=== PATIENT | female | born 1960 | race African-American/Black ===

== ENCOUNTER 2018-02-21 07:10 | Emergency (ER) | payer MEDICAID, OTHER ==
[~2018-02-21] VITALS: Ht 157.5 cm; Wt 63.6 kg
[~2018-02-21 07:10] MED LIST: AMLO-511 PO; ASPI-1182 PO; INSU100V12 SQ; PRAV20TA4 PO
[2018-02-21] MEDS ORDERED: CLON1PAT13 TD (07:38)
[2018-02-21] MEDS ORDERED: INSNOV SQ (07:38)
[2018-02-21] MEDS ORDERED: PROZ10 PO (07:38)
[2018-02-21] MEDS ORDERED: HYDR-2924 PO (07:38)
[2018-02-21] MEDS ORDERED: BUME1TAB17 PO (07:38)
[2018-02-21] MEDS ORDERED: PATI8.4P PO (07:38)
[2018-02-21] MEDS ORDERED: INSLAN SQ (07:38)
[2018-02-21] MEDS ORDERED: ISOS60TA4 PO (07:38)
[2018-02-21] MEDS ORDERED: SODI650T PO (07:38)
[2018-02-21] MEDS ORDERED: FERR-89 PO (07:38)
[2018-02-21 07:49] LABS: GLUCOSE,POINT OF CARE 50 MG/DL (70-110)
[2018-02-21 08:03] LABS: GLUCOSE,POINT OF CARE 42 MG/DL (70-110)
[2018-02-21] MEDS ORDERED: DEXTROSE 50%-WATER 25 GM/50 ML SYRINGE IVP ONE (08:15)
[2018-02-21 08:35] LABS: BASOPHILS % (AUTO) 1.2 % (0.0-2.0); EOSINOPHILS % (AUTO) 1.5 % (1.0-6.0); HEMATOCRIT 28.1 % (36-46); LYMPHOCYTES # (AUTO) 0.8 K/uL (1.0-4.8); LYMPHOCYTES % (AUTO) 12.7 % (22.0-44.0); MEAN CORPUSCULAR HEMOGLOBIN 26.2 pg (26.0-34.0); MEAN CORPUSCULAR HGB CONC 32.2 G/dL (31.0-37.0); MEAN CORPUSCULAR VOLUME 82 fL (80-100); MONOCYTES # (AUTO) 0.3 K/uL (0.1-1.0); NEUTROPHILS # (AUTO) 4.9 K/uL (1.8-7.7); NEUTROPHILS % (AUTO) 79.6 % (40.0-70.0); PLATELET COUNT (AUTO) 283 K/uL (150-450); RED BLOOD CELL COUNT(AUTO) 3.44 MIL/uL (4.00-5.20); RED CELL DISTRIBUTION WIDTH 14.2 % (11.5-14.5)
[2018-02-21 08:38] VITALS: BP 135/77
[2018-02-21 08:49] LABS: CALCIUM, TOTAL 8.7 mg/dL (8.8-10.5); CREATININE 2.72 mg/dL (0.60-1.30); POTASSIUM 4.5 mmol/L (3.5-5.1)
[2018-02-21 08:58] LABS: ALBUMIN 2.9 g/dL (3.4-5.0); BILIRUBIN,TOTAL 0.7 mg/dL (0.1-1.0); TOTAL PROTEIN, SERUM 8.6 g/dL (6.4-8.2)
[2018-02-21 09:08] LABS: GLUCOSE,POINT OF CARE 136 MG/DL (70-110)
[2018-02-21] MEDS ORDERED: SODIUM CHLORIDE 0.9% 1,000 ML IV ONE (10:00)
[2018-02-21 10:02] LABS: GLUCOSE,POINT OF CARE 139 MG/DL (70-110)
[2018-02-21 11:42] LABS: GLUCOSE,POINT OF CARE 139 MG/DL (70-110)
== END 2018-02-21 13:51 | disposition home or self-care (01) ==
LOC: EMS 07:12
DX: E11.649 Type 2 diabetes mellitus with hypoglycemia without coma (principal); E78.00 Pure hypercholesterolemia, unspecified; I10 Essential (primary) hypertension; F17.210 Nicotine dependence, cigarettes, uncomplicated; F14.90 Cocaine use, unspecified, uncomplicated; Z86.73 Personal history of transient ischemic attack (TIA), and cerebral infarction without residual deficits; Z79.4 Long term (current) use of insulin; Z79.82 Long term (current) use of aspirin; Z88.1 Allergy status to other antibiotic agents; Z88.8 Allergy status to other drugs, medicaments and biological substances; Z88.0 Allergy status to penicillin
CPT/HCPCS: 36415; 71045; 80053; 82962; 85025; 96361; 96374; 99285; 99406; J7030

== ENCOUNTER 2018-11-30 18:55 | Emergency (ER) | payer MEDICAID, OTHER ==
[~2018-11-30] VITALS: Ht 157.5 cm; Wt 55.0 kg
[~2018-11-30 18:55] MED LIST changes: +BUME1TAB17 PO; +CLON1PAT13 TD; +FERR-89 PO; +HYDR-2924 PO; +INSLAN SQ; +INSNOV SQ; +ISOS60TA4 PO; +PATI8.4P PO; +PROZ10 PO; +SODI650T PO
[2018-11-30] MEDS ORDERED: PARO20TA24 PO (19:22)
[2018-11-30] MEDS ORDERED: ISOS60TA4 PO (19:22)
[2018-11-30] MEDS ORDERED: CARV25 PO (19:22)
[2018-11-30 19:28] LABS: GLUCOSE,POINT OF CARE 219 MG/DL (70-110)
[2018-11-30 22:34] LABS: CALCIUM, TOTAL 8.9 mg/dL (8.8-10.5); CREATININE 3.72 mg/dL (0.60-1.30); POTASSIUM 4.5 mmol/L (3.5-5.1)
[2018-11-30 22:42] LABS: ALBUMIN 2.4 g/dL (3.4-5.0); BILIRUBIN,TOTAL 0.5 mg/dL (0.1-1.0); TOTAL PROTEIN, SERUM 7.6 g/dL (6.4-8.2)
[2018-12-01] MEDS ORDERED: CloNIDine HCL 0.2 MG TABLET PO ONE (00:15)
[2018-12-01 02:15] LABS: APPEARANCE,URINE CLOUDY (CLEAR); BILIRUBIN,URINE NEGATIVE (NEGATIVE); GLUCOSE, URINE (UA) 500 mg/dL (NEGATIVE); KETONES,URINE NEGATIVE (NEGATIVE); LEUKOCYTE ESTERASE ,URINE TRACE (NEGATIVE); NITRATE,URINE NEGATIVE (NEGATIVE); OCCULT BLOOD,URINE SMALL (NEGATIVE); PROTEIN,URINE SEE CONFIRM (NEGATIVE)
[2018-12-01 02:30] LABS: BACTERIA,URINE Many /HPF (None Seen)
[2018-12-01 02:31] LABS: SQUAMOUS EPITHELIAL CELL,UR Rare /LPF (None Seen); SULFOSALICYLIC ACID,URINE 1+ (Negative)
[2018-12-01 03:11] VITALS: BP 179/90
[2018-12-01] MEDS ORDERED: NITROFURANTOIN/NITROFURAN MAC 100 MG CAPSULE [MACROBID] PO ONE (03:15)
== END 2018-12-01 04:09 | disposition home or self-care (01) ==
LOC: EMS 18:56
DX: I11.0 Hypertensive heart disease with heart failure (principal); I50.9 Heart failure, unspecified; N39.0 Urinary tract infection, site not specified; E11.9 Type 2 diabetes mellitus without complications; E78.00 Pure hypercholesterolemia, unspecified; F41.9 Anxiety disorder, unspecified; F17.210 Nicotine dependence, cigarettes, uncomplicated; Z88.0 Allergy status to penicillin; Z88.1 Allergy status to other antibiotic agents; Z79.899 Other long term (current) drug therapy; Z79.4 Long term (current) use of insulin; Z79.82 Long term (current) use of aspirin
CPT/HCPCS: 87086; 93005